=== PATIENT | female | born 1950 | race Caucasian/White ===

== ENCOUNTER 2018-01-09 13:52 | Outpatient (CLI) | payer MEDICARE, OTHER ==
--- NOTE | 2018-01-09 15:38 | RAD ---
CERVICAL SPINE SERIES WITH FLEXION AND EXTENSION FIVE VIEWS: History: Neck pain. FINDINGS: Bones appear slightly demineralized. Vertebral body height is normal. There is marked disc narrowing at C5-6, less marked disc narrowing at C6-7. There are degenerative facet changes present. I do not a ppreciate any definite abnormal motion. There may be a minimal anterolisthesis of C5 on C6. IMPRESSION: Arthritic changes of the spine as discussed above. POS: [facility]
--- NOTE | 2018-01-09 15:45 | RAD ---
FOUR VIEWS LUMBAR SPINE: DATE: 01/09/18. History Bilateral buttock pain with pain extending to each groin and down the left leg. Lumbar radiculopathy . COMPARISON: None available. FINDINGS: There are 5 ufg-eto-pyzqcol lumbar-type vertebral bodies. There is trace retrolisthesis of L3 on L4 with trace grade I anterolisthesis of L4 on L5. No abnormal translational motion is seen between the flexion and extension views of the lumbar spine. Vertebral body heights are within normal limits. There is narrowing of the intervertebral disk space at all levels of the lumbar spine. Multilevel os teophytes are also present. There are facet degenerative changes seen within the lumbar spine. No f racture is seen. There is slight right convex curvature of the lumbar spine. IMPRESSION: 1. Multilevel degenerative changes with trace retrolisthesis of L3 on L4 and trace grade I anterolis thesis of L4 on L5. 2. No fracture is seen. Vertebral body heights are within normal limits. POS: [facility]
--- NOTE | 2018-01-09 16:43 | MRI ---
CERVICAL SPINE MRI WITHOUT CONTRAST 01/09/18 HISTORY: Bilateral shoulder pain, left greater than right. Pain between the shoulder blades. COMPARISON: None. TECHNIQUE: MRI cervical spine is performed without intravenous gadolinium administration. Multisequential, multi planar imaging is performed. FINDINGS: Appropriate T1 marrow signal intensity cervical vertebra. Vertebral body height is maintained. No fra cture. 2 mm of anterolisthesis of C3 upon C4, 2 mm of anterolisthesis of C4 upon C5. Mild edema invol ving the left facet at C5, likely on the basis of mechanical stress/degenerative change. No evidence of ligamentous injury. The visualized brain parenchyma, cervicomedullary junction, cervical cord, and the upper thoracic cor d have a normal size and signal intensity. C2-C3: No significant disc osteophyte complex. No significant central canal stenosis. Moderate to sev ere right foraminal narrowing due to degenerative change of the uncovertebral joint and facet hypertr ophy. Left neural foramina is patent. C3-C4: No significant disc osteophyte complex. No significant central canal stenosis. Neural foramina are patent bilaterally. C4-C5: Disc desiccation without significant loss of disc space height. No significant disc osteophyte complex. No significant central canal stenosis. Neural foramina are patent. There is bilateral facet hypertrophy. C5-C6: Desiccation with mild loss of disc space height. There is a broad based disc osteophyte comple x which abuts the thecal sac. Mild central canal stenosis. Moderate right and mild left foraminal ajit rowing due to degenerative change of the uncovertebral joint. C6-C7: Desiccation with moderate loss of disc space height. No significant central canal stenosis. Ri ght neural foramen is patent. Mild left foraminal narrowing due to degenerative change of the uncover tebral joint. C7-T1: Desiccation without significant loss of disc space height. No significant central canal stenos is. Neural foramina are patent bilaterally. IMPRESSION: Degenerative changes of the cervical spine as detailed above. POS: [facility]
--- NOTE | 2018-01-09 17:40 | MRI ---
MRI OF THE LUMBAR SPINE WITHOUT CONTRAST 01/09/18 HISTORY: Lumbar radiculopathy. Bilateral buttock pain, extending down the groin and down the left leg. COMPARISON: None. TECHNIQUE: MRI of the lumbar spine is performed without intravenous administration. Multisequential, multiplana r imaging is performed. FINDINGS: Appropriate T1 marrow signal intensity of the lumbar vertebrae. Vertebral body height is maintained. No fracture. No significant STIR hyperintensity to suggest edema or ligamentous injury. 1.4 mm of retrolisthesis of L3 upon L4, 2.5 mm anterolisthesis of L4 upon L5. Straightening of the no rmal lumbar lordosis is noted. Symmetric signal intensity of the psoas muscles. The visualized solid organs are unremarkable. T2 hyperintensity in the right renal pelvis may represent a small peripelvic cyst. The conus medullaris terminates at the inferior aspect of T12. T12-L1: Adequate disc hydration. No significant central canal stenosis or foraminal narrowing. L1-L2: No significant posterior disc abnormality. No significant central canal stenosis. Right neural foramen is patent. Minimal left foraminal narrowing. L2-L3: Adequate disc hydration. No significant posterior disc abnormality. No significant central can al stenosis. Foramina are patent. L3-L4: Severe loss of disc space height. No significant posterior disc abnormality. Minimal disc mate rial in the left and right subarticular zone. Mild ligamentum flavum thickening and facet hypertrophy are present. No significant central canal stenosis. The right neural foramen is patent. Moderate lef t foraminal narrowing due to disc material and to a lesser extent facet hypertrophy. There is a T2 hy perintensity involving the disc at the level of the left neural foramen suggesting a small annular fi ssure. The exiting left L3 nerve root is adjacent to this fissure. There is obscuration of the extra foraminal left L3 nerve root. L4-L5: Desiccation with moderate to severe loss of disc space height. Generalized disc bulge, ligamen odette flavum thickening and facet hypertrophy result in moderate central canal stenosis. Moderate bilat eral foraminal narrowing. L5-S1: Desiccation with mild loss of disc space height. There is a central disc protrusion with infer ior disc extrusion. Disc material encroaches upon the left subarticular zone. Minimal mass effect wit hout obscuration of the traversing left S1 nerve root. Right subarticular zone also demonstrates part ial obscuration of the traversing right S1 nerve root due to disc material. There is posterior elemen t hypertrophy. Narrowing of the thecal sac due to epidural lipomatosis. Mild bilateral foraminal narr owing. IMPRESSION: Degenerative changes of the lumbar spine at L3-L4, L4-L5 and L5-S1 as described above. POS: [facility]
== END 2018-01-09 13:53 | disposition home or self-care (01) ==
LOC: TBSIIMAG 13:52
PROVIDERS: ATTEND Surgery
DX: M47.26 Other spondylosis with radiculopathy, lumbar region (principal); M47.22 Other spondylosis with radiculopathy, cervical region; M51.16 Intervertebral disc disorders with radiculopathy, lumbar region; M47.27 Other spondylosis with radiculopathy, lumbosacral region; M99.83 Other biomechanical lesions of lumbar region; M99.81 Other biomechanical lesions of cervical region; M48.02 Spinal stenosis, cervical region
CPT/HCPCS: 72050; 72110; 72141; 72148

== ENCOUNTER 2018-03-18 12:56 | Outpatient (CLI) | payer MEDICARE, OTHER ==
[2018-03-18 14:46] LABS: #Basophils 0.1 thou/uL (0.0-0.2); #Eosinphils 0.1 thou/uL (0.0-0.7); #Lymphocytes 3.7 thou/uL (1.20-3.40); #Monocytes 0.7 thou/uL (0.11-0.59); #Neutrophils 3.9 thou/uL (1.40-6.50); %Basophils 1.4 % (0.0-1.0); %Eosinophils 1.3 % (0.0-10.0); %Lymphocytes 43.3 % (21.0-51.0); %Monocytes 8.3 % (0.0-10.0); %Neutrophils 45.7 % (42.0-75.0); Mean Corpuscular HGB CONC 34.2 g/dL (32.0-36.0); Mean Corpuscular Hemoglobin 29.7 pg (27.0-31.0); Mean Corpuscular Volume 87.1 fL (78.0-98.0); Mean Platelet Volume 7.9 fL (7.4-10.4); Platelet Count 291 thou/uL (130-400); Red Blood Cell (RBC) Count 4.71 mill/uL (4.20-5.40); White Blood Cell (WBC) Count 8.5 thou/uL (4.8-10.8)
[2018-03-18 14:58] LABS: PTT 26.6 SEC (22.9-36.1); Prothrombin Time 12.8 SEC (12.0-14.7)
[2018-03-18 15:04] LABS: Anion Gap 15 mmol/L (10-20); BUN (Urea Nitrogen) 32 mg/dL (9.8-20.1); Calc. Creatinine Clearance 0 mL/min (70-130); Calcium 10.3 mg/dL (7.8-10.44); Carbon Dioxide 28 mmol/L (23-31); Chloride 99 mmol/L (98-107); Estimated GFR-MDRD 55; Glucose 99 mg/dL (80-115); Potassium 5.2 mmol/L (3.5-5.1); Sodium 137 mmol/L (136-145)
--- NOTE | 2018-03-19 12:50 | EKG ---
Test Reason : Blood Pressure : / mmHG Vent. Rate : 078 BPM Atrial Rate : 078 BPM P-R Int : 162 ms QRS Dur : 096 ms QT Int : 426 ms P-R-T Axes : 048 -15 072 degrees QTc Int : 485 ms Normal sinus rhythm RSR' or QR pattern in V1 suggests right ventricular conduction delay Cannot exclude Anterior infarct , age undetermined Abnormal ECG Confirmed by SHANANN HOPSON ([id number]) on 03/19/2018 12:50:06 PM Referred By: MARTHA Confirmed By:SHANNAN HOPSON
== END 2018-03-18 12:57 | disposition home or self-care (01) ==
LOC: LABBT 12:56
PROVIDERS: ATTEND Surgery
DX: Z01.818 Encounter for other preprocedural examination (principal); M48.061 Spinal stenosis, lumbar region without neurogenic claudication; M51.26 Other intervertebral disc displacement, lumbar region
CPT/HCPCS: 80048; 85025; 85610; 85730; 93005; 93010

== ENCOUNTER 2018-03-28 11:12 | Day surgery (SDC) | payer MEDICARE, OTHER ==
[2018-03-18 13:15] VITALS: BMI 37.5
[2018-03-28] MEDS ORDERED: CEFAZOLIN/Water 2 GM/20 ML SYRINGE ONE (12:21)
[2018-03-28] MEDS ORDERED: Bacitracin Zinc Ointment 30 gm TUBE ONE (12:27)
[2018-03-28] MEDS ORDERED: Thrombin 5000 UNITS/5 ML VIAL ONE (12:27)
[2018-03-28] MEDS ORDERED: Sodium Chloride 0.9% 10 ML ONE (12:27)
[2018-03-28] MEDS ORDERED: Fentanyl 250 MCG/5 ML VIAL ONE (13:24)
[2018-03-28] MEDS ORDERED: Midazolam HCl 2 mg/2 ml Vial ONE (13:24)
[2018-03-28] MEDS ORDERED: Morphine Sulfate 2 MG/ML SYRINGE SLOW IVP PRN (15:17)
[2018-03-28] MEDS ORDERED: Promethazine HCl 25 MG/ML VIAL SLOW IVP PRN (15:17)
[2018-03-28] MEDS ORDERED: Meperidine HCl/PF 25 MG/ML VIAL SLOW IVP PRN (15:17)
[2018-03-28] MEDS ORDERED: PHENYLEPHRINE-NS 100 MCG/ML 10 ML SYRINGE ONE (15:34)
[2018-03-28] MEDS ORDERED: Fleet Enema 133 ML BOT PR PRN (16:26)
[2018-03-28] MEDS ORDERED: traMADol HCl 50 MG TAB PO PRN (16:26)
[2018-03-28] MEDS ORDERED: Bisacodyl 10 MG SUPP PR PRN (16:26)
[2018-03-28] MEDS ORDERED: Acetaminophen/Codeine 30-300mg Tablet PO PRN (16:26)
[2018-03-28] MEDS ORDERED: tiZANidine HCl 4 MG TAB PO PRN (16:26)
[2018-03-28] MEDS ORDERED: Acetaminophen 325 MG TAB PO PRN (16:26)
[2018-03-28] MEDS ORDERED: Mag-Al 1200 mg/1200 mg/30 ML UDCUP PO PRN (16:26)
[2018-03-28] MEDS ORDERED: Milk Of Magnesia 30 ML UDCUP PO PRN (16:26)
[2018-03-28] MEDS ORDERED: Promethazine HCl 25 MG/ML VIAL IM PRN (16:26)
[2018-03-28] MEDS ORDERED: Fentanyl 100 MCG/2 ML VIAL ONE ×3 (16:27→17:04)
[2018-03-28] MEDS: HYDROcodone/Acetaminophen 7.5/325 mg Tablet PO PRN (18:06)
[2018-03-28] MEDS: Sodium Chloride 0.9% 1,000 ML IV SCH (19:38)
--- NOTE | 2018-03-28 20:22 | OP ---
OR: 11. WOUND TYPE: Type 1 wound. SURGEON: Joshua Martinez M.D. INSURANCE SALES AGENT: Jamie Condno PA-C. PREPROCEDURE DIAGNOSIS: Multilevel lumbar stenosis with disk extrusion. POSTPROCEDURE DIAGNOSIS: Multilevel lumbar stenosis with disk extrusion. PROCEDURES PERFORMED: 1. Left L3-L4 hemilaminotomy, foraminotomy for decompression of left L3 nerve root. 2. L4-L5, L5-S1 laminectomies, partial facetectomies and foraminotomies with right L5-S1 diskectomy. 3. Use of operative microscope for microdissection. DESCRIPTION OF PROCEDURE: After informed consent was obtained, the patient was brought to OR 11. Pr oper patient pause and identification was carried out. She was placed under excellent general endotr acheal anesthesia and positioned prone on the OR table. All appropriate points were padded. We iden tified the L3, L4, L5, and S1 dorsal spines. A linear clive was made over this region. This area was sterilely cleansed, prepared, and draped. Proper patient pause and identification was carried out. The wound was then opened with a combination of sharp, monopolar and blunt dissection. The L3, L4, L5, and S1 dorsal spines and only the left L3 hemilamina was exposed; however. We then performed a l eft L3-L4 hemilaminotomy, foraminotomy. I did not feel it necessary to do any diskectomy as was an o steophytic disk at this segment and I also did not feel it necessary to do the transfacet approaches and was able to obtain satisfactory decompression with the standard hemilaminotomy approach. Once I assured freedom of the left L3 and left L4 nerve root, L4-L5 and L5-S1 laminectomies, partial facetec tomies and foraminotomies were performed for bilateral decompression of the L4, L5 and S1 nerve roots . I then brought the microscope in for microdissection and worked over the shoulder of the traversin g right S1 nerve root and disk material was removed at L5-S1. Portions of this were also osteophytic ; however, we were able to remove the soft fragments. I was satisfied with our decompression and the wound was copiously irrigated throughout as was maximizing hemostasis. The wound was then closed in anatomic layers following the sprinkling of vancomycin powder. The patient then emerged from anesth esia.
[2018-03-28] MEDS ORDERED: Losartan 25 MG TAB PO SCH (21:00)
[2018-03-28] MEDS ORDERED: Gabapentin 400 MG CAP PO SCH (21:00)
[2018-03-28] MEDS: DULoxetine 30 MG CAP PO SCH (21:27)
[2018-03-28] MEDS: Calcium Polycarbophil 625 MG TAB PO SCH (21:27)
[2018-03-28] MEDS: CEFAZOLIN/Water 2 GM/20 ML SYRINGE SLOW IVP SCH (21:27)
[2018-03-28] MEDS: Sulfameth/Trimethoprim DS 800-160mg TAB PO SCH (21:28)
[2018-03-28] MEDS: Zinc Sulfate 220 MG CAP PO SCH (21:28)
[2018-03-29] MEDS: HYDROcodone/Acetaminophen 7.5/325 mg Tablet PO PRN ×2 (04:03→09:15)
[2018-03-29] MEDS: CEFAZOLIN/Water 2 GM/20 ML SYRINGE SLOW IVP SCH (08:00)
[2018-03-29] MEDS ORDERED: CEFAZOLIN/Water 2 GM/20 ML SYRINGE SLOW IVP SCH (08:00)
[2018-03-29] MEDS ORDERED: Potassium Chloride 20 MEQ TAB PO SCH (09:00)
[2018-03-29] MEDS ORDERED: Prevnar 13-Val Conj/PF 0.5 ML SYRINGE IM ONE (09:00)
[2018-03-29] MEDS ORDERED: Loratadine/Pseudoephedrine 10/240 mg Tablet PO SCH (09:00)
[2018-03-29] MEDS ORDERED: Hydrochlorothiazide 25 MG TAB PO SCH (09:00)
[2018-03-29] MEDS ORDERED: Gabapentin 300 MG CAP PO SCH (09:00)
[2018-03-29] MEDS ORDERED: Magnesium Oxide 400 MG TAB PO SCH (09:00)
[2018-03-29] MEDS: DULoxetine 30 MG CAP PO SCH (09:06)
[2018-03-29] MEDS: Calcium Polycarbophil 625 MG TAB PO SCH (09:06)
[2018-03-29] MEDS: Sulfameth/Trimethoprim DS 800-160mg TAB PO SCH (09:07)
[2018-03-29] MEDS: Zinc Sulfate 220 MG CAP PO SCH (09:07)
[2018-03-29] MEDS: Sodium Chloride 0.9% 1,000 ML IV SCH (09:08)
--- NOTE | 2018-03-29 09:41 | PRG ---
DATE OF SERVICE: 03/29/2018 SUBJECTIVE: Ms. Elmore is postoperative day #1 for multilevel lumbar decompression diskectomy. She is doing well with improvement in her leg pain. She has had some groin pain in the left groin and h ip pain, but she is doing better than before surgery. I am pleased with how she is doing and her str ength is good. We went over interim postoperative issues and she will be dismissed.
[2018-03-29 11:45] VITALS: BP 125/78; TEMP 98.5
== END 2018-03-29 12:30 | disposition home or self-care (01) ==
LOC: SDC 11:12 → SURG A 16:30 → SDC 03-29 12:30
PROVIDERS: ATTEND Surgery
PROC: 0ST20ZZ Resection of Lumbar Vertebral Disc, Open Approach (ICD-10-PCS; principal; 2018-03-28)
PROC: 01NB0ZZ Release Lumbar Nerve, Open Approach (ICD-10-PCS; 2018-03-28)
DX: M48.061 Spinal stenosis, lumbar region without neurogenic claudication (principal); M51.26 Other intervertebral disc displacement, lumbar region; Z88.8 Allergy status to other drugs, medicaments and biological substances
CPT/HCPCS: 76001; 96374; A4216; J2250; J3010; J3370; J3490; J7620

== ENCOUNTER 2018-05-20 09:21 | Outpatient (CLI) | payer MEDICARE, OTHER ==
--- NOTE | 2018-05-20 12:11 | HP ---
DATE OF SERVICE: 05/20/2018 HISTORY OF PRESENT ILLNESS: Ms. Pham Elmore is a very pleasant 67-year-old who presents to the [facility] for evaluation of a nonhealing surgical wound of the back in the midline subsequent to surgery for multilevel lumbar stenosis with disk extension by Dr. Joshua Martinez on 03/28/2018. The patient states that subsequent to surgery, she developed erythema around her surgical incision assoc iated with drainage. She states that her marino were discontinued "1 week early". The patient salazar es any pain associated with her wound. She states that she has been keeping her wound covered with a dressing which she changes every day. The patient states she has not been prescribed any antibiotic s for her wound. She states that she did, however, complete a course of p.o. antibiotics for 3 weeks for a urinary tract infection. PAST MEDICAL HISTORY: Hypertension. PAST SURGICAL HISTORY: 1. Surgery for multilevel lumbar stenosis with disk extension by Dr. Joshua Martinez on 03/28/2018. 2. . 3. Tonsillectomy. 4. Appendectomy. MEDICATIONS: 1. Losartan. 2. Duloxetine. 3. Hydrocodone. 4. Tizanidine. 5. Verapamil. 6. Gabapentin. 7. Diuretic. ALLERGIES: FLUOROQUINOLONES, LATEX. SOCIAL HISTORY: Significant for tobacco use for 2 years as a teenager. The patient admits to only t he rare consumption of alcohol. FAMILY HISTORY: Significant for diabetes mellitus. The patient states that her mother and father we re both diagnosed with diabetes mellitus. Family history is also significant for coronary artery dis ease. The patient states that her grandfather was diagnosed with coronary artery disease. PHYSICAL EXAMINATION: VITAL SIGNS: Temperature 98.3, pulse 101, respirations 19, blood pressure 133/74. GENERAL: A 67-year-old female sitting on table in examination room in no acute distress. HEENT: Normocephalic, atraumatic. NECK: No nuchal rigidity. CHEST: Clear to auscultation. CARDIAC: Regular rate and rhythm. ABDOMEN: Soft. BACK: A midline wound of the back is present which has divided into 2 wounds which measure approxima tely 5.5 x 0.6 cm and 1.2 x 0.5 cm. Nonviable tissue present within the larger wound was debrided wi th an excisional full-thickness debridement with the use of scissors. No purulent drainage is associ ated with either wound. No maceration of the skin of the periwound is noted. NEUROLOGIC: Grossly nonfocal. ASSESSMENT AND PLAN: 1. Nonhealing surgical wound of the back in the midline subsequent to surgery for multilevel lumbar stenosis with disk extension by Dr. Joshua Martinez on 03/28/2018. Dressing changes of Medihoney, 4 x 4 s and bordered gauze will be initiated today. These dressing changes are to be performed on a daily basis or alternatively every other day after cleansing and irrigation with the assistance of the joselito ent's . The patient will be seen by Dr. Martinez in 1 week. I will see Ms. Elmore again in 2 weeks. No antibiotics will be prescribed today based upon the appearance of the wound. 2. Hypertension.
== END 2018-05-20 09:22 | disposition home or self-care (01) ==
LOC: WCC 09:21
PROVIDERS: ATTEND Family Medicine
DX: T81.89XD Other complications of procedures, not elsewhere classified, subsequent encounter (principal); I10 Essential (primary) hypertension; Z98.890 Other specified postprocedural states

== ENCOUNTER 2018-06-03 10:41 | Outpatient (CLI) | payer MEDICARE, OTHER ==
--- NOTE | 2018-06-03 11:58 | PRG ---
DATE OF SERVICE: 06/03/2018 HISTORY: Ms. Pham Elmore is a very pleasant 68-year-old who presents to the Wound Center for eval uation of a nonhealing surgical wound of the back in the midline subsequent to surgery for multilevel lumbar stenosis with disk extension by Dr. Joshua Martinez on 03/28/2018. The patient previously state d that subsequent to surgery, she developed erythema around her surgical incision associated with lewisendy mckeon. She stated that her marino were discontinued "1 week early." At the time of the patient's i nitial presentation to the Wound Center, Ms. Elmore denied any pain associated with her wound. She stated that she had been keeping her wound covered with a dressing, which she changed every day. She stated she had not been prescribed any antibiotics for her wound. She stated that she had, however, completed a course of p.o. antibiotics for 3 weeks for a urinary tract infection. After being seen in the Wound Center, the patient was placed on dressing changes of Medihoney. The patient has been r eceiving these dressing changes with the assistance of her . PHYSICAL EXAMINATION: VITAL SIGNS: Temperature 97.9, pulse 99, respirations 20, blood pressure 164/92. BACK: A midline wound of the back is present, which measures approximately 6.7 x 0.4 cm. Nonviable tissue present within the wound margins was debrided with an excisional full-thickness debridement wi th the use of scissors and a curette. No purulent drainage is associated with the wound. No macerat ion of the skin of the periwound is noted. ASSESSMENT AND PLAN: 1. Nonhealing surgical wound of the back in the midline subsequent to surgery for multilevel lumbar stenosis with disk extension by Dr. Joshua Martinez on 03/28/2018. Dressing changes of Medihoemanuel follow ed by 4 x 4s and an ABD secured with tape will be continued after cleansing and irrigation with the a ssistance of the patient's . I will see Ms. Elmore again in two weeks if her wound is still present at this time. 2. Hypertension.
== END 2018-06-03 10:42 | disposition home or self-care (01) ==
LOC: WCC 10:41
PROVIDERS: ATTEND Family Medicine
DX: T81.89XD Other complications of procedures, not elsewhere classified, subsequent encounter (principal); M48.061 Spinal stenosis, lumbar region without neurogenic claudication; I10 Essential (primary) hypertension
CPT/HCPCS: 11042

== ENCOUNTER 2018-06-19 10:45 | Outpatient (CLI) | payer MEDICARE, OTHER ==
--- NOTE | 2018-06-19 12:13 | PRG ---
DATE OF SERVICE: 06/19/2018 HISTORY: Ms. Pham Elmore is a very pleasant 68-year-old, who presents to the Wound Center for rocío luation of a nonhealing surgical wound of the back in the midline subsequent to surgery for multileve l lumbar stenosis with disk extrusion by Dr. Joshua Martinez on 03/28/2018. The patient previously stat ed that, subsequent to surgery, she developed erythema around her surgical incision associated with d rainage. She stated that her marino were discontinued "1 week early." At the time of the patient's initial presentation to the Wound Center, Ms. Elmore denied any pain associated with her wound. Sh e stated that she had been keeping her wound covered with a dressing, which she changed every day. S he stated she had not been prescribed any p.o. antibiotics. She stated that she had, however, comple ai a course of p.o. antibiotics for 3 weeks for a urinary tract infection. After being seen in the Wound Center, the patient was placed on dressing changes of Ela. The patient has been receivin g these dressing changes with the assistance of her . PHYSICAL EXAMINATION: VITAL SIGNS: Temperature 97.6, pulse 89, respirations 19, blood pressure 143/73. BACK: Two wounds of the back in the midline remain, which measure approximately 2.0 x 0.3 cm and 0.9 x 0.3 cm. Nonviable tissue present within the margins of each wound was debrided with an excisional full-thickness debridement with the use of scissors and a curette. No purulent drainage is associat ed with either wound. No cellulitis of the back is appreciated. No maceration of the skin of the ba ck is noted. ASSESSMENT AND PLAN: 1. Nonhealing surgical wound of the back in the midline subsequent to surgery for multilevel lumbar stenosis with disk extrusion by Dr. Joshua Martinez on 03/28/2018. Dressing changes of Ela follow ed by 4 x 4s secured with tape are to be performed on a daily basis after cleansing and irrigation wi th the assistance of the patient's until both wounds have completely healed. The wounds have almost healed completely and Ms. Elmore will be discharged from clinic today with followup on a p.r .n. basis. The patient states she has a followup appointment with Neurosurgery in approximately 2 we eks. 2. Hypertension.
[2018-06-19] MEDS ORDERED: Lidocaine 2% Jelly 5 ML TUBE ONE (15:00)
[2018-06-19] MEDS ORDERED: Sodium Chloride 0.9% 15 ML NEB ONE (15:00)
== END 2018-06-19 10:46 | disposition home or self-care (01) ==
LOC: WCC 10:45
PROVIDERS: ATTEND Family Medicine
DX: T81.89XD Other complications of procedures, not elsewhere classified, subsequent encounter (principal); I10 Essential (primary) hypertension
CPT/HCPCS: 11042; A4218

== ENCOUNTER 2018-08-08 12:34 | Outpatient (CLI) | payer MEDICARE, OTHER ==
[2018-08-08 14:34] LABS: #Basophils 0.2 thou/uL (0.0-0.2); #Eosinphils 0.3 thou/uL (0.0-0.7); #Lymphocytes 4.1 thou/uL (1.20-3.40); #Monocytes 0.9 thou/uL (0.11-0.59); #Neutrophils 4.8 thou/uL (1.40-6.50); %Basophils 1.6 % (0.0-1.0); %Eosinophils 2.5 % (0.0-10.0); %Lymphocytes 40.2 % (21.0-51.0); %Monocytes 8.7 % (0.0-10.0); Hemoglobin 13.2 g/dL (12.0-16.0); Mean Corpuscular HGB CONC 34.1 g/dL (32.0-36.0); Mean Corpuscular Volume 85.2 fL (78.0-98.0); Mean Platelet Volume 8.8 fL (7.4-10.4); Platelet Count 292 thou/uL (130-400); RBC Distribution Width 13.5 % (11.5-14.5); Red Blood Cell (RBC) Count 4.54 mill/uL (4.20-5.40); White Blood Cell (WBC) Count 10.2 thou/uL (4.8-10.8)
[2018-08-08 14:44] LABS: Bilirubin Negative (Negative); Blood, Urine Negative (Negative); Clarity CLEAR (Clear); Glucose, Urine (Dipstick) Negative (Negative); Leukocyte Small (Negative); Nitrite Negative (Negative); Protein, Urine (Dipstick) Negative (Neg-Trace); Specific Gravity, Urine 1.028 (1.002-1.036); Urobilinogen 0.2 mg/dL (0.2-1.0); pH, Urine 5.5 (5.0-9.0)
[2018-08-08 14:46] LABS: PTT 27.1 SEC (22.9-36.1); Prothrombin Time 13.2 SEC (12.0-14.7)
[2018-08-08 14:48] LABS: Bacteria/HPF None Seen HPF (None Seen); Hyaline Casts/LPF 0-3 HYALINE CAST LPF (0-3 Hyaline); Pathc Cast-AUWi Flag 0.29 (0-2.49); RBC/HPF 0-3 HPF (0-3); Squamous Epithelial 0-3 HPF (0-3)
[2018-08-08 14:58] LABS: Anion Gap 16 mmol/L (10-20); BUN (Urea Nitrogen) 22 mg/dL (9.8-20.1); Calc. Creatinine Clearance 0 mL/min (70-130); Calcium 10.1 mg/dL (7.8-10.44); Carbon Dioxide 28 mmol/L (23-31); Chloride 98 mmol/L (98-107); Estimated GFR-MDRD 81; Glucose 129 mg/dL (80-115); Potassium 3.6 mmol/L (3.5-5.1); Sodium 138 mmol/L (136-145)
--- NOTE | 2018-08-08 15:19 | RAD ---
TWO VIEW CHEST: INDICATION: Preoperative evaluation. FINDINGS: The lungs are clear. Cardiac silhouette is at upper limits of normal in size. There is no effusion or pneumothorax. Osseous degenerative changes are present. IMPRESSION: 1. No focal consolidation. 2. Cardiac silhouette is at upper limits of normal in size. POS: [facility]
--- NOTE | 2018-08-09 22:34 | EKG ---
Test Reason : Blood Pressure : / mmHG Vent. Rate : 083 BPM Atrial Rate : 083 BPM P-R Int : 166 ms QRS Dur : 100 ms QT Int : 424 ms P-R-T Axes : 047 -09 039 degrees QTc Int : 498 ms Normal sinus rhythm Incomplete right bundle branch block Minimal voltage criteria for LVH, may be normal variant Prolonged QT Abnormal ECG When compared with ECG of 18-MAR-2018 14:15, No significant change was found Confirmed by GWEN CHAMBERLAIN, . SKarl ([id number]) on 08/09/2018 10:33:43 PM Referred By: ROSARIO Confirmed By:DR. Akash HIDALGO MD
== END 2018-08-08 12:35 | disposition home or self-care (01) ==
LOC: LABBT 12:34
PROVIDERS: ATTEND Orthopaedic Surgery
DX: Z01.818 Encounter for other preprocedural examination (principal); M16.12 Unilateral primary osteoarthritis, left hip
CPT/HCPCS: 71046; 80048; 81001; 85025; 85610; 85730; 87081; 93005; 93010

== ENCOUNTER 2018-08-08 13:30 | Inpatient (IN) | payer MEDICARE, OTHER ==
[2018-08-13] MEDS ORDERED: Midazolam HCl 2 mg/2 ml Vial ONE (07:45)
[2018-08-13] MEDS ORDERED: Fentanyl 100 MCG/2 ML VIAL ONE ×2 (07:45→09:24)
[2018-08-13] MEDS ORDERED: Vancomycin HCl 1.5 GM in Sodium Chloride 0.9% 250 ML 300 ML IVPB SCH (08:00)
[2018-08-13] MEDS ORDERED: Sodium Chloride 0.9% 100 ML ONE (08:04)
[2018-08-13] MEDS ORDERED: CEFAZOLIN 2 GM/50 ML BAG ONE (08:04)
[2018-08-13] MEDS ORDERED: Tranexamic Acid 1,000 MG/10 ML VIAL ONE ×2 (08:04→11:27)
[2018-08-13] MEDS ORDERED: Ondansetron PF 4 MG/2 ML Vial IVP PRN ×2 (08:45→09:05)
[2018-08-13] MEDS ORDERED: Naloxone HCl 0.4 mg/ml Vial IVP PRN (08:45)
[2018-08-13] MEDS ORDERED: diphenhydrAMINE 25 MG CAP PO PRN ×2 (08:45→09:05)
[2018-08-13] MEDS ORDERED: traMADol HCl 50 MG TAB PO PRN ×3 (08:45→09:05)
[2018-08-13] MEDS ORDERED: Naloxone HCl 0.4 mg/ml Vial IV PRN (08:45)
[2018-08-13] MEDS ORDERED: Hydrocerin (Eucerin) Cream 120 gm Jar TOP PRN (08:45)
[2018-08-13] MEDS ORDERED: diphenhydrAMINE 50 MG/ML VIAL IM PRN (08:45)
[2018-08-13] MEDS ORDERED: HYDROcodone/Acetaminophen 5/325 mg Tablet PO PRN (08:45)
[2018-08-13] MEDS ORDERED: Promethazine HCl 25 MG SUPP PR PRN (08:45)
[2018-08-13] MEDS ORDERED: Promethazine HCl 25 MG/ML VIAL IM PRN ×2 (08:45→09:05)
[2018-08-13] MEDS ORDERED: Bupivacaine 0.25% 10 ML VIAL EPIDURAL PRN (08:45)
[2018-08-13] MEDS ORDERED: diphenhydrAMINE 50 MG/ML VIAL IVP PRN (08:45)
[2018-08-13] MEDS ORDERED: Zolpidem Tartrate 5 MG TAB PO PRN ×2 (08:45→09:05)
[2018-08-13] MEDS ORDERED: HYDROcodone/Acetaminophen 10/325 mg Tablet PO PRN ×2 (09:05)
[2018-08-13] MEDS ORDERED: Acetaminophen 325 MG TAB PO PRN (09:05)
[2018-08-13] MEDS ORDERED: Fentanyl 100 MCG/2 ML VIAL SLOW IVP PRN ×2 (09:05)
[2018-08-13] MEDS ORDERED: Non-Formulary Item 1 EACH (Gabapentin [Gabapentin] 1 TAB) PO SCH (09:15)
[2018-08-13] MEDS ORDERED: Bupivacaine/Epinephrine 0.25% 30 ML VIAL ONE (09:33)
[2018-08-13] MEDS ORDERED: Acetaminophen 1,000 MG in Premix Bag 1 BAG IVPB SCH (12:00)
--- NOTE | 2018-08-13 12:21 | RAD ---
LEFTL HIP TWO VIEWS: History: Status post arthroplasty. Comparison: 06-12-17 FINDINGS: There are expected postoperative changes. Alignment is near anatomic. IMPRESSION: Expected post-operative change compatible with left hip arthroplasty. POS: [facility]
[2018-08-13] MEDS ORDERED: Acetaminophen 500 MG TAB PO PRN (12:23)
[2018-08-13 13:01] VITALS: BMI 40.6
[2018-08-13] MEDS ORDERED: Prevnar 13-Val Conj/PF 0.5 ML SYRINGE IM ONE (13:30)
[2018-08-13] MEDS: Sodium Chloride 0.9% 1,000 ML IV SCH ×3 (14:13→18:54)
[2018-08-13] MEDS: Gabapentin 300 MG CAP PO SCH ×2 (14:27→21:47)
[2018-08-13] MEDS: CEFAZOLIN 2 GM/50 ML BAG IVPB SCH (14:28)
--- NOTE | 2018-08-13 14:49 | PDOC.PN ---
- Subjective Encounter Start Date: 08/13/18 Encounter Start Time: 14:00 -: old records requested/rev Patient seen and examined. No new complaints. pt is admitted for left hip replacement consulted for medical management pain controlled - Objective Resuscitation Status - Order Detail: 08/13/18 13:45 Resuscitation Status Routine Resuscitation Status: FULL: Full Resuscitation MAR Reviewed: Yes Vital Signs & Weight: Vital Signs (12 hours) Temp Pulse Resp BP Pulse Ox 08/13/18 12:45 97.6 F 70 16 107/67 94 L Weight Weight 252 lb Additional Labs: old record reviewed Radiology Reviewed by me: Yes (hip xray reviwed) Phys Exam - Physical Examination Constitutional: NAD HEENT: PERRLA, moist MMs, sclera anicteric Neck: no JVD, supple Respiratory: no wheezing, no rales, no rhonchi Cardiovascular: RRR, no significant murmur, no rub Gastrointestinal: soft, non-tender, no distention, positive bowel sounds Musculoskeletal: no edema, pulses present left hip site with dressing, epidural in place, trotter Neurological: non-focal, normal sensation, moves all 4 limbs Lymphatic: no nodes Psychiatric: normal affect, A&O x 3 Skin: no rash, normal turgor Dx/Plan (1) Status post total hip replacement, left Code(s): Z96.642 - PRESENCE OF LEFT ARTIFICIAL HIP JOINT Status: Acute (2) Dyslipidemia Code(s): E78.5 - HYPERLIPIDEMIA, UNSPECIFIED Status: Chronic (3) Hypertension Code(s): I10 - ESSENTIAL (PRIMARY) HYPERTENSION Status: Chronic (4) Lumbar canal stenosis Code(s): M48.061 - SPINAL STENOSIS, LUMBAR REGION WITHOUT NEUROGENIC SADE Status: Chronic (5) Morbid obesity with BMI of 40.0-44.9, adult Code(s): E66.01 - MORBID (SEVERE) OBESITY DUE TO EXCESS CALORIES; Z68.41 - BODY MASS INDEX (BMI) 40.0-44.9, ADULT Status: Chronic (6) Osteoarthritis Code(s): M19.90 - UNSPECIFIED OSTEOARTHRITIS, UNSPECIFIED SITE Status: Chronic - Plan cont current plan of care, plan discussed w/ family, PT/OT * continue aspirin for DVT prophylaxis * continue pepcid for GI prophylaxis * epidural as per anesthesia * code status addressed and she is full code * medication reviewed as below * symptomatic treatment * discussed with family * PT/OT as per [facility] protocol * home medication reconciled.. Review of Systems - Review of Systems ENT: negative: Ear Pain, Ear Discharge, Nose Pain, Nose Discharge, Nose Congestion, Mouth Pain, Mouth Swelling, Throat Pain, Throat Swelling, Other Respiratory: negative: Cough, Dry, Shortness of Breath, Hemoptysis, SOB with Excertion, Pleuritic Pain, Sputum, Wheezing Cardiovascular: negative: chest pain, palpitations, orthopnea, paroxysmal nocturnal dyspnea, edema, light headedness, other Gastrointestinal: negative: Nausea, Vomiting, Abdominal Pain, Diarrhea, Constipation, Melena, Hematochezia, Other Genitourinary: negative: Dysuria, Frequency, Incontinence, Hematuria, Retention , Other Musculoskeletal: negative: Neck Pain, Shoulder Pain, Arm Pain, Back Pain, Hand Pain, Leg Pain, Foot Pain, Other Skin: negative: Rash, Lesions, Del, Bruising, Other - Medications/Allergies Allergies/Adverse Reactions: Allergies Allergy/AdvReac Type Severity Reaction Status Date / Time ofloxacin [From Floxin] Allergy hallucinati Verified 08/08/18 12:46 ons Medications: Current Medications Acetaminophen (Tylenol) 1,000 mg PO Q6H PRN PRN Reason: Fever/Mild Pain Hydrocodone Bitart/Acetaminophen ([place] 5/325) 1 tab PO Q4H PRN PRN Reason: Mild Pain 0-3 Hydrocodone Bitart/Acetaminophen ([place] 5/325) 2 tab PO Q4H PRN PRN Reason: For Moderate Pain 4-6 Hydrocodone Bitart/Acetaminophen ([place] 10/325) 1 tab PO Q4H PRN PRN Reason: Moderate Pain (4-6) Hydrocodone Bitart/Acetaminophen ([place] 10/325) 2 tab PO Q4H PRN PRN Reason: Severe Pain (7-10) Aspirin (Ecotrin) 81 mg PO BID ROD Bupivacaine HCl (Marcaine) 5 ml EPIDURAL ONE PRN PRN Reason: UNCONTROLLED PAIN Stop: 08/13/18 23:00 Cefazolin Sodium/Dextrose (Ancef 2 Gm/50 Ml) 2 gm IVPB Q8H ROD Stop: 08/14/18 00:01 Last Admin: 08/13/18 14:28 Dose: 2 gm Diphenhydramine HCl (Benadryl) 25 mg IM Q3H PRN PRN Reason: Itching Diphenhydramine HCl (Benadryl) 25 mg IVP Q3H PRN PRN Reason: Itching Diphenhydramine HCl (Benadryl) 25 mg PO Q6H PRN PRN Reason: Itching Duloxetine HCl (Cymbalta) 30 mg PO BID [facility] Emollient Cream (Hydrocerin Cream) 0 gm TOP PRN PRN PRN Reason: Itching Fentanyl (Sublimaze) 50 mcg SLOW IVP Q30MIN PRN PRN Reason: Moderate Pain (4-6) Fentanyl (Sublimaze) 100 mcg SLOW IVP Q1H PRN PRN Reason: Severe Pain (7-10) Ferrous Gluconate (Fergon) 324 mg PO BID [facility] Gabapentin (Neurontin) 600 mg PO 0900,1500 [facility] Last Admin: 08/13/18 14:27 Dose: 600 mg Gabapentin (Neurontin) 1,200 mg PO HS [facility] Hydrochlorothiazide (Hydrochlorothiazide) 12.5 mg PO DAILY [facility] Fentanyl Citrate (Fentanyl/Bupivacaine) 100 mls @ 6 mls/hr EPIDURAL INF [facility] Sodium Chloride (Normal Saline 0.9%) 1,000 mls @ 100 mls/hr IV .Q10H [facility] Last Admin: 08/13/18 14:27 Dose: 1,000 mls Iron/Minerals/Multivitamins (Theragran M) 1 tab PO DAILY [facility] Losartan Potassium (Cozaar) 50 mg PO HS [facility] Miscellaneous Information (Communication Order-Pharmacy) 1 each FS ASDIR ROD Naloxone HCl (Narcan) 0.2 mg IV Q5MIN PRN PRN Reason: RR <=8 OR OBTUNDED/UNAROUSABLE Naloxone HCl (Narcan) 0.1 mg IVP Q15MIN PRN PRN Reason: URINARY RETENTION Ondansetron HCl (Zofran) 4 mg IVP Q6H PRN PRN Reason: Nausea/Vomiting Promethazine HCl (Phenergan Suppository) [address] Q4H PRN PRN Reason: Nausea/Vomiting Promethazine HCl (Phenergan) 12.5 mg IM Q4H PRN PRN Reason: Nausea/Vomiting Senna/Docusate Sodium (Senokot S) 2 tab PO BID [facility] Sodium Chloride (Flush - Normal Saline) 10 ml IVF PRN PRN PRN Reason: Saline Flush Tizanidine HCl (Zanaflex) 4 mg PO Q8H PRN PRN Reason: MUS PAIN Tramadol HCl (Ultram) 50 mg PO Q6H PRN PRN Reason: Mild Pain 1-3 Tramadol HCl (Ultram) 100 mg PO Q6H PRN PRN Reason: Moderate Pain 4-6 Verapamil HCl (Calan Sr) 240 mg PO QAM ROD Zolpidem Tartrate (Ambien) 5 mg PO HSPRN PRN PRN Reason: Insomnia
[2018-08-13] MEDS ORDERED: Ondansetron PF 4 MG/2 ML Vial ONE (16:07)
[2018-08-13] MEDS ORDERED: Dexamethasone 20 MG/5 ML VIAL ONE (16:07)
[2018-08-13] MEDS ORDERED: Glycopyrrolate 0.2 MG/ML 5 ML SYRINGE ONE (16:07)
[2018-08-13] MEDS ORDERED: PROPOFOL 200 MG/20 ML VIAL ONE (16:07)
[2018-08-13] MEDS ORDERED: PHENYLEPHRINE-NS 100 MCG/ML 10 ML SYRINGE ONE (16:07)
[2018-08-13] MEDS ORDERED: Lidocaine 1% PF 5 ML VIAL ONE (16:07)
--- NOTE | 2018-08-13 19:05 | OP ---
DATE OF PROCEDURE: 08/13/2018 PROCEDURE PERFORMED: Left total hip arthroplasty using a Blair Accolade size II stem with a -2.5 x 36 ceramic head, PSL 50 mm cup with a 36 mm X3 Liner. PROFESSOR OF PUBLIC ADMINISTRATION: Yehuda Demarco PA-C. BLOOD LOSS: 200. SPECIMENS: None. DRAINS: None. COMPLICATIONS: None. PROCEDURE IN DETAIL: After informed consent was obtained in the preoperative holding area, the patient was taken to the operative suite where general anesthesia was induced. The patient was then positioned in the lateral decubitus position. The hip was then prepped and draped in usual sterile fashion. The patient received preoperative antibiotics. Prior to incision, time-out was called and all members of the surgical team agreed upon site, surgeon, and patient. After this, a longitudinal incision was made directly over the trochanter, noted by palpation extending 2 fingerbreadths above and below the trochanter. The deeper subcutaneous layer was undermined with Bovie electrocautery. The iliotibial band was encountered and incised sharply and the plane below this was developed bluntly. A Charnley retractor was placed to hold this opened. The lateral aspect of the trochanter and the abductor muscles were encountered and then reflected anteriorly off the trochanter using Bovie electrocautery. Once this was completed, the anterior capsule was then encountered and identified and copious capsulotomy was carried out, exposing the femoral neck and head. Dislocation maneuver was then performed and an in situ provisional neck cut was then made using the oscillating saw. Attention was then turned to acetabular preparation and sequential reaming was carried out up to the appropriate diameter. A trial was then malleted into place with good firm resistance and no pullout. The permanent acetabular shell was then malleted squarely into place, as was the appropriate liner. Once completed, the wound was copiously irrigated and attention was then turned to femoral preparation. Flexion and external rotation were performed of the exposed thigh and femoral elevators were then placed at the proximal aspect of the wound. Canal finder was used to establish the length of the canal and sequential reaming was carried out, followed by broaching. Once the appropriate stability was established with the trial broaches with flexion, extension and rotational stability, we did trial with neutral and 2 mm offset incremental necks. Once the appropriate size was decided upon, with good stability noted with flexion, extension, internal and external rotation and shuck being negative, we removed the femoral trial broach and malleted into place the permanent prosthesis with good firm fit, which was also stable to rotation. Again, the hip felt very stable to flexion, extension, internal and external rotation. Leg lengths appeared near anatomic clinically and we were quite happy with prosthesis placement. Copious irrigation was then carried out through the entirety of the wound. Primary closure of the abductors was accomplished with interrupted #2 Vicryl [id number] stitches and the IT band was then closed with interrupted #2 Vicryl, oversewn with a #2 running barbed Quill stitch. Subcutaneous fascia was closed with running barbed Quill stitch and a subcuticular Monocryl barbed Quill stitch was used for skin closure and augmented with skin cement. A sterile dressing was applied. The procedure was terminated without any complication. All counts were correct. The patient was awakened in the operative suite and taken to the recovery room in stable condition. Job ID: [id number]
[2018-08-13] MEDS ORDERED: tiZANidine HCl 4 MG TAB PO PRN (21:00)
[2018-08-13] MEDS: DULoxetine 30 MG CAP PO SCH (21:45)
[2018-08-13] MEDS: Senokot S 8.6-50 MG TAB PO SCH (21:46)
[2018-08-13] MEDS: Famotidine 20 MG TAB PO SCH (21:46)
[2018-08-13] MEDS: Ferrous Gluconate 324 MG TAB PO SCH (21:46)
[2018-08-13] MEDS: Aspirin 81 mg Enteric Coated Tablet PO SCH (21:51)
[2018-08-14] MEDS: CEFAZOLIN 2 GM/50 ML BAG IVPB SCH (00:53)
[2018-08-14] MEDS: Fentanyl/Bupivacaine 100 ML EPIDURAL SCH ×2 (01:50→16:53)
[2018-08-14] MEDS: Sodium Chloride 0.9% 1,000 ML IV SCH ×2 (04:43→11:05)
[2018-08-14] MEDS: HYDROcodone/Acetaminophen 5/325 mg Tablet PO PRN ×2 (04:45→09:58)
[2018-08-14 06:57] LABS: Hemoglobin 11.4 g/dL (12.0-16.0); Mean Corpuscular HGB CONC 32.5 g/dL (32.0-36.0); Mean Corpuscular Hemoglobin 28.3 pg (27.0-31.0); Mean Corpuscular Volume 86.9 fL (78.0-98.0); Mean Platelet Volume 8.4 fL (7.4-10.4); Platelet Count 255 thou/uL (130-400); RBC Distribution Width 13.5 % (11.5-14.5); Red Blood Cell (RBC) Count 4.04 mill/uL (4.20-5.40); White Blood Cell (WBC) Count 12.2 thou/uL (4.8-10.8)
[2018-08-14] MEDS ORDERED: Non-Formulary Item 1 EACH (Hydrochlorothiazide [Hydrochlorothiazide] 1 TAB) PO SCH (09:00)
[2018-08-14] MEDS: DULoxetine 30 MG CAP PO SCH ×2 (09:59→21:56)
[2018-08-14] MEDS: Multivitamin W/ Minerals 1 TAB PO SCH (09:59)
[2018-08-14] MEDS: Ferrous Gluconate 324 MG TAB PO SCH ×2 (09:59→21:57)
[2018-08-14] MEDS: Famotidine 20 MG TAB PO SCH ×2 (09:59→21:57)
[2018-08-14] MEDS: Senokot S 8.6-50 MG TAB PO SCH ×2 (09:59→21:56)
[2018-08-14] MEDS: Hydrochlorothiazide 25 MG TAB PO SCH (10:00)
[2018-08-14] MEDS: Aspirin 81 mg Enteric Coated Tablet PO SCH ×2 (10:00→21:56)
--- NOTE | 2018-08-14 10:06 | PDOC.PN ---
- Subjective Encounter Start Date: 08/14/18 Encounter Start Time: 09:40 Patient seen and examined. No new complaints. No overnight events - Objective Resuscitation Status - Order Detail: 08/13/18 13:45 Resuscitation Status Routine Resuscitation Status: FULL: Full Resuscitation MAR Reviewed: Yes Vital Signs & Weight: Vital Signs (12 hours) Temp Pulse Resp BP Pulse Ox 08/14/18 07:41 98.3 F 103 H 18 147/86 H 91 L 08/14/18 07:30 95 08/14/18 04:00 98.1 F 99 18 152/80 H 96 08/14/18 00:00 98.5 F 99 18 153/84 H 94 L Weight Weight 252 lb I&O: 08/13/18 08/14/18 08/15/18 06:59 06:59 06:59 Intake Total 1390 3192 Output Total 300 3800 Balance 1090 -608 Result Diagrams: 08/14/18 06:34 Phys Exam - Physical Examination Constitutional: NAD HEENT: PERRLA, moist MMs, sclera anicteric Neck: no JVD, supple Respiratory: no wheezing, no rales, no rhonchi, clear to auscultation bilateral Cardiovascular: RRR, no significant murmur, no rub Gastrointestinal: soft, non-tender, no distention, positive bowel sounds Musculoskeletal: no edema, pulses present right hip with dressing Neurological: non-focal, normal sensation, moves all 4 limbs Lymphatic: no nodes Psychiatric: normal affect, A&O x 3 Skin: no rash, normal turgor Dx/Plan (1) Status post total hip replacement, left Code(s): Z96.642 - PRESENCE OF LEFT ARTIFICIAL HIP JOINT Status: Acute (2) Dyslipidemia Code(s): E78.5 - HYPERLIPIDEMIA, UNSPECIFIED Status: Chronic (3) Hypertension Code(s): I10 - ESSENTIAL (PRIMARY) HYPERTENSION Status: Chronic (4) Lumbar canal stenosis Code(s): M48.061 - SPINAL STENOSIS, LUMBAR REGION WITHOUT NEUROGENIC SADE Status: Chronic (5) Morbid obesity with BMI of 40.0-44.9, adult Code(s): E66.01 - MORBID (SEVERE) OBESITY DUE TO EXCESS CALORIES; Z68.41 - BODY MASS INDEX (BMI) 40.0-44.9, ADULT Status: Chronic (6) Osteoarthritis Code(s): M19.90 - UNSPECIFIED OSTEOARTHRITIS, UNSPECIFIED SITE Status: Chronic (7) Anemia, normocytic normochromic Code(s): D64.9 - ANEMIA, UNSPECIFIED Status: Chronic - Plan cont current plan of care, plan discussed w/ family, PT/OT * continue aspirin for DVT prophylaxis * continue pepcid for GI prophylaxis * epidural as per anesthesia * continue trotter care * medication reviewed as below * symptomatic treatment * discussed with family * PT/OT as per [facility] protocol Review of Systems - Review of Systems ENT: negative: Ear Pain, Ear Discharge, Nose Pain, Nose Discharge, Nose Congestion, Mouth Pain, Mouth Swelling, Throat Pain, Throat Swelling, Other Respiratory: negative: Cough, Dry, Shortness of Breath, Hemoptysis, SOB with Excertion, Pleuritic Pain, Sputum, Wheezing Cardiovascular: negative: chest pain, palpitations, orthopnea, paroxysmal nocturnal dyspnea, edema, light headedness, other Gastrointestinal: negative: Nausea, Vomiting, Abdominal Pain, Diarrhea, Constipation, Melena, Hematochezia, Other Genitourinary: negative: Dysuria, Frequency, Incontinence, Hematuria, Retention , Other Musculoskeletal: negative: Neck Pain, Shoulder Pain, Arm Pain, Back Pain, Hand Pain, Leg Pain, Foot Pain, Other Skin: negative: Rash, Lesions, Del, Bruising, Other - Medications/Allergies Allergies/Adverse Reactions: Allergies Allergy/AdvReac Type Severity Reaction Status Date / Time ofloxacin [From Floxin] Allergy hallucinati Verified 08/08/18 12:46 ons Medications: Current Medications Acetaminophen (Tylenol) 1,000 mg PO Q6H PRN PRN Reason: Fever/Mild Pain Hydrocodone Bitart/Acetaminophen ([place] 5/325) 1 tab PO Q4H PRN PRN Reason: Mild Pain 0-3 Hydrocodone Bitart/Acetaminophen ([place] 5/325) 2 tab PO Q4H PRN PRN Reason: For Moderate Pain 4-6 Last Admin: 08/14/18 09:58 Dose: 2 tab Aspirin (Ecotrin) 81 mg PO BID ROD Last Admin: 08/14/18 10:00 Dose: 81 mg Diphenhydramine HCl (Benadryl) 25 mg IM Q3H PRN PRN Reason: Itching Diphenhydramine HCl (Benadryl) 25 mg IVP Q3H PRN PRN Reason: Itching Diphenhydramine HCl (Benadryl) 25 mg PO Q6H PRN PRN Reason: Itching Duloxetine HCl (Cymbalta) 30 mg PO BID [facility] Last Admin: 08/14/18 09:59 Dose: 30 mg Emollient Cream (Hydrocerin Cream) 0 gm TOP PRN PRN PRN Reason: Itching Famotidine (Pepcid) 20 mg PO BID [facility] Last Admin: 08/14/18 09:59 Dose: 20 mg Ferrous Gluconate (Fergon) 324 mg PO BID [facility] Last Admin: 08/14/18 09:59 Dose: 324 mg Gabapentin (Neurontin) 600 mg PO 0900,1500 [facility] Last Admin: 08/13/18 14:27 Dose: 600 mg Gabapentin (Neurontin) 1,200 mg PO HS [facility] Last Admin: 08/13/18 21:47 Dose: 1,200 mg Hydrochlorothiazide (Hydrochlorothiazide) 12.5 mg PO DAILY [facility] Last Admin: 08/14/18 10:00 Dose: 12.5 mg Fentanyl Citrate (Fentanyl/Bupivacaine) 100 mls @ 6 mls/hr EPIDURAL INF [facility] Last Admin: 08/14/18 01:50 Dose: 100 mls Sodium Chloride (Normal Saline 0.9%) 1,000 mls @ 100 mls/hr IV .Q10H [facility] Last Admin: 08/14/18 04:43 Dose: Not Given Iron/Minerals/Multivitamins (Theragran M) 1 tab PO DAILY [facility] Last Admin: 08/14/18 09:59 Dose: 1 tab Losartan Potassium (Cozaar) 50 mg PO [facility] Miscellaneous Information (Communication Order-Pharmacy) 1 each FS ASDIR [facility] Naloxone HCl (Narcan) 0.2 mg IV Q5MIN PRN PRN Reason: RR <=8 OR OBTUNDED/UNAROUSABLE Naloxone HCl (Narcan) 0.1 mg IVP Q15MIN PRN PRN Reason: URINARY RETENTION Ondansetron HCl (Zofran) 4 mg IVP Q6H PRN PRN Reason: Nausea/Vomiting Promethazine HCl (Phenergan Suppository) 25 mg [place] Q4H PRN PRN Reason: Nausea/Vomiting Promethazine HCl (Phenergan) 12.5 mg IM Q4H PRN PRN Reason: Nausea/Vomiting Senna/Docusate Sodium (Senokot S) 2 tab PO BID [facility] Last Admin: 08/14/18 09:59 Dose: 2 tab Sodium Chloride (Flush - Normal Saline) 10 ml IVF PRN PRN PRN Reason: Saline Flush Tizanidine HCl (Zanaflex) 4 mg PO Q8H PRN PRN Reason: MUS PAIN Tramadol HCl (Ultram) 50 mg PO Q6H PRN PRN Reason: Mild Pain 1-3 Tramadol HCl (Ultram) 100 mg PO Q6H PRN PRN Reason: Moderate Pain 4-6 Verapamil HCl (Calan Sr) 240 mg PO QAM [facility] Last Admin: 08/14/18 10:01 Dose: 240 mg Zolpidem Tartrate (Ambien) 5 mg PO HSPRN PRN PRN Reason: Insomnia
[2018-08-14] MEDS: Gabapentin 300 MG CAP PO SCH ×3 (11:20→21:56)
[2018-08-14] MEDS ORDERED: Losartan 25 MG TAB PO SCH (21:00)
[2018-08-15] MEDS: Sodium Chloride 0.9% 1,000 ML IV SCH ×2 (00:18→08:24)
[2018-08-15] MEDS: Fentanyl/Bupivacaine 100 ML EPIDURAL SCH (05:43)
[2018-08-15 06:16] LABS: Hemoglobin 11.6 g/dL (12.0-16.0); Mean Corpuscular HGB CONC 32.7 g/dL (32.0-36.0); Mean Corpuscular Hemoglobin 28.9 pg (27.0-31.0); Mean Corpuscular Volume 88.2 fL (78.0-98.0); Mean Platelet Volume 8.8 fL (7.4-10.4); Platelet Count 256 thou/uL (130-400); RBC Distribution Width 13.6 % (11.5-14.5); White Blood Cell (WBC) Count 12.8 thou/uL (4.8-10.8)
[2018-08-15] MEDS: DULoxetine 30 MG CAP PO SCH (08:21)
[2018-08-15] MEDS: Aspirin 81 mg Enteric Coated Tablet PO SCH (08:21)
[2018-08-15] MEDS: Hydrochlorothiazide 25 MG TAB PO SCH (08:22)
[2018-08-15] MEDS: Senokot S 8.6-50 MG TAB PO SCH (08:23)
[2018-08-15] MEDS: Multivitamin W/ Minerals 1 TAB PO SCH (08:23)
[2018-08-15] MEDS: Ferrous Gluconate 324 MG TAB PO SCH (08:23)
[2018-08-15] MEDS: Gabapentin 300 MG CAP PO SCH ×2 (08:23→16:16)
[2018-08-15] MEDS: Famotidine 20 MG TAB PO SCH (08:24)
[2018-08-15] MEDS: HYDROcodone/Acetaminophen 5/325 mg Tablet PO PRN ×2 (08:26→13:45)
--- NOTE | 2018-08-15 09:16 | PDOC.PN ---
- Subjective Encounter Start Date: 08/15/18 Encounter Start Time: 07:40 Patient seen and examined. No new complaints. No overnight events - Objective Resuscitation Status - Order Detail: 08/13/18 13:45 Resuscitation Status Routine Resuscitation Status: FULL: Full Resuscitation MAR Reviewed: Yes Vital Signs & Weight: Vital Signs (12 hours) Temp Pulse Resp BP BP Pulse Ox 08/15/18 07:30 98.4 F 110 H 18 132/83 97 08/15/18 04:00 98.3 F 99 16 147/80 H 91 L 08/15/18 00:00 97.9 F 97 18 153/78 H 91 L Weight Admit Weight 252 lb Weight 252 lb I&O: 08/14/18 08/15/18 08/16/18 06:59 06:59 06:59 Intake Total 1390 3192 2015 Output Total 300 3800 2600 Balance 1090 -608 -584 Result Diagrams: 08/15/18 05:35 Phys Exam - Physical Examination Constitutional: NAD HEENT: PERRLA, moist MMs, sclera anicteric Neck: no JVD, supple Respiratory: no wheezing, no rales, no rhonchi Cardiovascular: RRR, no significant murmur, no rub Gastrointestinal: soft, non-tender, no distention, positive bowel sounds Musculoskeletal: no edema, pulses present Neurological: non-focal, normal sensation Psychiatric: normal affect, A&O x 3 Skin: no rash, normal turgor Dx/Plan (1) Status post total hip replacement, left Code(s): Z96.642 - PRESENCE OF LEFT ARTIFICIAL HIP JOINT Status: Acute (2) Dyslipidemia Code(s): E78.5 - HYPERLIPIDEMIA, UNSPECIFIED Status: Chronic (3) Hypertension Code(s): I10 - ESSENTIAL (PRIMARY) HYPERTENSION Status: Chronic (4) Lumbar canal stenosis Code(s): M48.061 - SPINAL STENOSIS, LUMBAR REGION WITHOUT NEUROGENIC SADE Status: Chronic (5) Morbid obesity with BMI of 40.0-44.9, adult Code(s): E66.01 - MORBID (SEVERE) OBESITY DUE TO EXCESS CALORIES; Z68.41 - BODY MASS INDEX (BMI) 40.0-44.9, ADULT Status: Chronic (6) Osteoarthritis Code(s): M19.90 - UNSPECIFIED OSTEOARTHRITIS, UNSPECIFIED SITE Status: Chronic (7) Anemia, normocytic normochromic Code(s): D64.9 - ANEMIA, UNSPECIFIED Status: Chronic - Plan cont current plan of care * medication reviewed as below * symptomatic treatment * see discharge summery * medically stable. Review of Systems - Review of Systems ENT: negative: Ear Pain, Ear Discharge, Nose Pain, Nose Discharge, Nose Congestion, Mouth Pain, Mouth Swelling, Throat Pain, Throat Swelling, Other Respiratory: negative: Cough, Dry, Shortness of Breath, Hemoptysis, SOB with Excertion, Pleuritic Pain, Sputum, Wheezing Cardiovascular: negative: chest pain, palpitations, orthopnea, paroxysmal nocturnal dyspnea, edema, light headedness, other Gastrointestinal: negative: Nausea, Vomiting, Abdominal Pain, Diarrhea, Constipation, Melena, Hematochezia, Other Genitourinary: negative: Dysuria, Frequency, Incontinence, Hematuria, Retention , Other Musculoskeletal: negative: Neck Pain, Shoulder Pain, Arm Pain, Back Pain, Hand Pain, Leg Pain, Foot Pain, Other - Medications/Allergies Allergies/Adverse Reactions: Allergies Allergy/AdvReac Type Severity Reaction Status Date / Time ofloxacin [From Floxin] Allergy hallucinati Verified 08/08/18 12:46 ons Medications: Current Medications Acetaminophen (Tylenol) 1,000 mg PO Q6H PRN PRN Reason: Fever/Mild Pain Hydrocodone Bitart/Acetaminophen ([place] 5/325) 1 tab PO Q4H PRN PRN Reason: Mild Pain 0-3 Hydrocodone Bitart/Acetaminophen ([place] 5/325) 2 tab PO Q4H PRN PRN Reason: For Moderate Pain 4-6 Last Admin: 08/14/18 09:58 Dose: 2 tab Aspirin (Ecotrin) 81 mg PO BID [facility] Last Admin: 08/15/18 08:21 Dose: 81 mg Diphenhydramine HCl (Benadryl) 25 mg IM Q3H PRN PRN Reason: Itching Diphenhydramine HCl (Benadryl) 25 mg IVP Q3H PRN PRN Reason: Itching Diphenhydramine HCl (Benadryl) 25 mg PO Q6H PRN PRN Reason: Itching Duloxetine HCl (Cymbalta) 30 mg PO BID [facility] Last Admin: 08/15/18 08:21 Dose: 30 mg Emollient Cream (Hydrocerin Cream) 0 gm TOP PRN PRN PRN Reason: Itching Famotidine (Pepcid) 20 mg PO BID [facility] Last Admin: 08/15/18 08:24 Dose: 20 mg Ferrous Gluconate (Fergon) 324 mg PO BID [facility] Last Admin: 08/15/18 08:23 Dose: 324 mg Gabapentin (Neurontin) 600 mg PO 0900,1500 [facility] Last Admin: 08/15/18 08:23 Dose: 600 mg Gabapentin (Neurontin) 1,200 mg PO HS [facility] Last Admin: 08/14/18 21:56 Dose: 1,200 mg Hydrochlorothiazide (Hydrochlorothiazide) 12.5 mg PO DAILY [facility] Last Admin: 08/15/18 08:22 Dose: 12.5 mg Fentanyl Citrate (Fentanyl/Bupivacaine) 100 mls @ 8 mls/hr EPIDURAL INF [facility] Last Admin: 08/15/18 05:43 Dose: 100 mls Sodium Chloride (Normal Saline 0.9%) 1,000 mls @ 100 mls/hr IV .Q10H [facility] Last Admin: 08/15/18 08:24 Dose: Not Given Iron/Minerals/Multivitamins (Theragran M) 1 tab PO DAILY [facility] Last Admin: 08/15/18 08:23 Dose: 1 tab Losartan Potassium (Cozaar) 50 mg PO HS [facility] Last Admin: 08/14/18 21:56 Dose: 50 mg Miscellaneous Information (Communication Order-Pharmacy) 1 each FS ASDIR [facility] Naloxone HCl (Narcan) 0.2 mg IV Q5MIN PRN PRN Reason: RR <=8 OR OBTUNDED/UNAROUSABLE Naloxone HCl (Narcan) 0.1 mg IVP Q15MIN PRN PRN Reason: URINARY RETENTION Ondansetron HCl (Zofran) 4 mg IVP Q6H PRN PRN Reason: Nausea/Vomiting Promethazine HCl (Phenergan Suppository) 25 mg [place] Q4H PRN PRN Reason: Nausea/Vomiting Promethazine HCl (Phenergan) 12.5 mg IM Q4H PRN PRN Reason: Nausea/Vomiting Senna/Docusate Sodium (Senokot S) 2 tab PO BID [facility] Last Admin: 08/15/18 08:23 Dose: 2 tab Sodium Chloride (Flush - Normal Saline) 10 ml IVF PRN PRN PRN Reason: Saline Flush Tizanidine HCl (Zanaflex) 4 mg PO Q8H PRN PRN Reason: MUS PAIN Tramadol HCl (Ultram) 50 mg PO Q6H PRN PRN Reason: Mild Pain 1-3 Tramadol HCl (Ultram) 100 mg PO Q6H PRN PRN Reason: Moderate Pain 4-6 Verapamil HCl (Calan Sr) 240 mg PO QAM [facility] Last Admin: 08/15/18 08:23 Dose: 240 mg Zolpidem Tartrate (Ambien) 5 mg PO HSPRN PRN PRN Reason: Insomnia
--- NOTE | 2018-08-15 10:28 | DIS ---
DATE OF ADMISSION: 08/13/2018 DATE OF DISCHARGE: 08/15/2018 PRIMARY CARE PHYSICIAN: Sven Parker MD DISCHARGE DISPOSITION: Home. PRIMARY DISCHARGE DIAGNOSIS: Status post left total hip replacement. SECONDARY DISCHARGE DIAGNOSES: 1. Osteoarthritis. 2. Morbid obesity with body mass index of 40. 3. Chronic lumbar canal stenosis. 4. Hypertension. 5. Dyslipidemia. 6. Normocytic normochromic anemia. PRIMARY PROCEDURE/OPERATION: Left hip replacement by Dr. Will. RADIOLOGICAL INVESTIGATION: Repeat x-ray. SIGNIFICANT LABS: Hemoglobin 11.6. DISCHARGE MEDICATION: 1. Henry 5 one tablet q.6 hourly p.r.n. 2. Tramadol 50 mg q.6 hourly p.r.n. 3. Zanaflex 4 mg q.8 hourly p.r.n. 4. Tylenol Arthritis 2 tablets p.o. t.i.d. p.r.n. 5. Calcium with vitamin D 1 tablet daily. 6. Cinnamon 1000 mg t.i.d. 7. Cymbalta 30 mg p.o. b.i.d. 8. Fiber capsules 2 capsules p.o. t.i.d. 9. Fish oil 1 capsule daily. 10. Gabapentin 600 mg as directed. 11. Hydrochlorothiazide 12.5 mg p.o. daily. 12. Losartan 50 mg p.o. daily. 13. Magnesium 400 mg p.o. daily. 14. Mobic 15 mg p.o. daily p.r.n. 15. Potassium 99 mg p.o. daily. 16. Verapamil SR 240 mg p.o. daily. 17. Ocuvite 1 tablet daily. 18. Zinc 50 mg b.i.d. 19. Aspirin 81 mg p.o. b.i.d. for DVT prophylaxis. CONTRAINDICATION: None. CODE STATUS: Full code. INPATIENT SURGERY MANAGER: Dr. Will was primary, Sound Team was consulted for medical management. ALLERGIES: OFLOXACIN. TEST RESULTS PENDING ON DISCHARGE: None. DISCHARGE PLAN: Posthospital, the patient will follow up with Dr. Arthur Will as instructed. HOSPITAL COURSE: A 68-year-old female, who was admitted by Dr. Will, electively for left hip replacement and after surgery Sound Team was consulted for medical management. While in hospital, the patient had epidural. Her pain was controlled with pain medication. The patient did very well with [facility] protocol treatment. The patient's home medication was continued while in the hospital as well as on discharge. She is given aspirin for DVT prophylaxis. The patient is seen and examined at bedside today. Please see my progress note from today for further details. Job ID: [id number]
[2018-08-15 11:50] VITALS: BP 110/65; TEMP 98.2
[2018-08-16] MEDS ORDERED: Fluticasone Propionate Nasal Spray 16 gm Bottle NASAL SCH (09:00)
== END 2018-08-15 16:18 | disposition home or self-care (01) | DRG 470 ==
LOC: SURG A 08-13 06:38 → SJJU 08-13 11:50
PROVIDERS: ADMIT Orthopaedic Surgery; ATTEND Orthopaedic Surgery
PROC: 0SRB04A Replacement of Left Hip Joint with Ceramic on Polyethylene Synthetic Substitute, Uncemented, Open Approach (ICD-10-PCS; principal; 2018-08-13)
DX: M16.12 Unilateral primary osteoarthritis, left hip (principal); Z68.41 Body mass index [BMI] 40.0-44.9, adult; E66.01 Morbid (severe) obesity due to excess calories; M48.061 Spinal stenosis, lumbar region without neurogenic claudication; I10 Essential (primary) hypertension; E78.5 Hyperlipidemia, unspecified; D64.9 Anemia, unspecified
CPT/HCPCS: 36415; 85027; G8978-GP-CM; G8979-GP-CJ; G8987-GO-CK; G8988-GO-CI; J0131; J1100; J1200; J2001; J2250; J2405; J2704; J3010; J3370; J7050

== ENCOUNTER 2020-06-20 22:03 | Emergency (ER) | payer MEDICARE, OTHER ==
[2020-06-20] MEDS ORDERED: Morphine 4 MG/ML VIAL ONE (22:49)
[2020-06-20] MEDS ORDERED: Acetaminophen 500 MG TAB ONE (22:49)
[2020-06-20] MEDS ORDERED: Ketorolac Tromethamine 30 MG/ML VIAL ONE (22:49)
[2020-06-20 22:52] LABS: #Basophils 0.1 thou/uL (0.0-0.2); #Eosinphils 0.1 thou/uL (0.0-0.7); #Lymphocytes 2.9 thou/uL (1.20-3.40); #Monocytes 0.9 thou/uL (0.11-0.59); #Neutrophils 9.5 thou/uL (1.40-6.50); %Basophils 0.6 % (0.0-1.0); %Eosinophils 1.1 % (0.0-10.0); %Lymphocytes 21.6 % (21.0-51.0); %Monocytes 6.4 % (0.0-10.0); %Neutrophils 70.3 % (42.0-75.0); Hemoglobin 14.6 g/dL (12.0-16.0); Mean Corpuscular HGB CONC 34.9 g/dL (32.0-36.0); Mean Corpuscular Hemoglobin 29.7 pg (27.0-31.0); Mean Corpuscular Volume 85.1 fL (78.0-98.0); Mean Platelet Volume 9.1 fL (7.4-10.4); Platelet Count 313 thou/uL (130-400); Red Blood Cell (RBC) Count 4.92 mill/uL (4.20-5.40); White Blood Cell (WBC) Count 13.5 thou/uL (4.8-10.8)
[2020-06-20 23:12] LABS: ALT (SGPT) 29 U/L (8-55); AST (SGOT) 22 U/L (5-34); Albumin 4.1 g/dL (3.4-4.8); Alkaline Phosphatase 81 U/L (40-110); Anion Gap 18 mmol/L (10-20); BUN (Urea Nitrogen) 31 mg/dL (9.8-20.1); Bilirubin, Total 0.3 mg/dL (0.2-1.2); Calc. Creatinine Clearance 0 mL/min (70-130); Carbon Dioxide 27 mmol/L (23-31); Chloride 96 mmol/L (98-107); Estimated GFR-MDRD 51; Globulin 3.3 g/dL (2.4-3.5); Glucose 326 mg/dL (80-115); Potassium 3.9 mmol/L (3.5-5.1); Protein, Total 7.4 g/dL (6.0-8.3); Sodium 137 mmol/L (136-145)
--- NOTE | 2020-06-20 23:29 | ULT ---
US Venous Doppler Rt Unilat History: Posterior leg pain Comparison: None. Findings: Real-time grayscale, color and spectral analysis of the right lower extremity venous system was performed. The common femoral, femoral, proximal portions greater saphenous and deep femoral veins as well as the popliteal and posterior tibial veins were interrogated. Normal flow, augmentation and compression. Impression: No deep venous thrombosis.
== END 2020-06-21 00:05 | disposition home or self-care (01) ==
LOC: ERS 22:03
DX: S39.012A Strain of muscle, fascia and tendon of lower back, initial encounter (principal); E11.9 Type 2 diabetes mellitus without complications; I10 Essential (primary) hypertension; F32.9 Major depressive disorder, single episode, unspecified; Z71.6 Tobacco abuse counseling; Z79.899 Other long term (current) drug therapy
CPT/HCPCS: 36415; 80053; 85025; 85379; 96374; 96375; 99406; J1885; J2270

== ENCOUNTER 2020-07-30 13:23 | Outpatient (CLI) | payer MEDICARE, OTHER ==
--- NOTE | 2020-07-30 14:57 | RAD ---
LUMBAR SPINE: 07/30/20 HISTORY: Back pain. COMPARISON: 01/09/18. Lumbar vertebrae maintain height. Degenerative disc changes at all levels with disc narrowing. Modera te degenerative osteophytes and facet hypertrophy. Slight posterolisthesis at L3-4 is stable from the prior exam. No significant change in alignment with flexion or extension. IMPRESSION: Degenerative changes lumbar spine appears stable from prior exam. POS: OFF
--- NOTE | 2020-07-30 16:10 | MRI ---
MR LUMBAR SPINE WITHOUT CONTRAST: 07/30/20 INDICATION: 70-year-old female with low back pain. COMPARISON: Prior MR of the lumbar spine dated 01/09/18. FINDINGS: There is grade I anterolisthesis of L4 on L5 which is stable. Conus is seen to terminate at approxima tely T12-L1. There has been interval postsurgical change of laminectomies at L4 and L5. The visualized aspects of the retroperitoneum and paravertebral soft tissues reveal no definite acute abnormality. No acute fracture is demonstrated. At L5-S1, there is a broad based disc bulge with a superimposed central protrusion. The protrusion in addition to facet hypertrophy induces moderate left recess narrowing without definite impingement of the traversing S1 nerve roots. This is relatively stable to the prior exam. The degree of central ca nal narrowing has improved since the laminectomy. No appreciable neural foraminal narrowing is eviden t. At L4-5, there is a broad based bulge with facet hypertrophy and loss of disc space height. There is mild narrowing of the neural foramina, right greater than left that is stable to the prior exam. Cent ral canal narrowing has improved from the prior study. At L3-4, there is an asymmetric to the left broad based disc osteophyte complex and facet hypertrophy inducing mild to moderate left neural foraminal narrowing which is stable. At L2-3, there is a broad based bulge with facet hypertrophy inducing some mild effacement of the sub arachnoid space without nerve root compression. No appreciable neural foraminal narrowing is evident. At L1-L2, there is a broad based bulge that is stable in size from the prior exam. No appreciable meghan tral canal or neural foraminal narrowing is evident. T1-L1, there is a minimal broad based bulge but no appreciable central canal or neural foraminal narr owing. IMPRESSION: Improved central canal narrowing at L4-5 and L5-S1 due to interval laminectomies. There is persistent central protrusion at L5-S1 in addition to facet hypertrophy inducing moderate lateral recess narrow ing without definite impingement of the traversing S1 nerve roots. There is a persistent neural jose alberto inal narrowing from L3-4 through L5-S1. POS: TONIA
== END 2020-07-30 13:24 | disposition home or self-care (01) ==
LOC: TBSIIMAG 13:23
PROVIDERS: ATTEND Surgery
DX: M54.5 Low back pain (principal); M79.606 Pain in leg, unspecified; M48.061 Spinal stenosis, lumbar region without neurogenic claudication; M48.07 Spinal stenosis, lumbosacral region; M51.27 Other intervertebral disc displacement, lumbosacral region; M47.816 Spondylosis without myelopathy or radiculopathy, lumbar region; Z98.890 Other specified postprocedural states
CPT/HCPCS: 72110; 72148

== ENCOUNTER 2021-03-17 17:47 | Inpatient (IN) | payer MEDICARE, OTHER ==
[2021-03-18 02:43] VITALS: BMI 39.3
[2021-03-22 15:31] VITALS: BP 117/50; TEMP 97.6
== END 2021-03-22 16:08 | disposition home or self-care (01) | DRG 175 ==
LOC: ERS 17:47 → ERHOLD 21:18 → 2NO 03-18 16:41
PROVIDERS: ADMIT Student in an Organized Health Care Education/Training Program; ATTEND Internal Medicine
DX: I26.99 Other pulmonary embolism without acute cor pulmonale (principal); I21.A1 Myocardial infarction type 2; E87.2 Acidosis; I82.432 Acute embolism and thrombosis of left popliteal vein; I10 Essential (primary) hypertension; F32.9 Major depressive disorder, single episode, unspecified; E66.01 Morbid (severe) obesity due to excess calories; R91.1 Solitary pulmonary nodule; K76.0 Fatty (change of) liver, not elsewhere classified; E27.8 Other specified disorders of adrenal gland; E11.9 Type 2 diabetes mellitus without complications; F41.9 Anxiety disorder, unspecified; Z90.49 Acquired absence of other specified parts of digestive tract; Z88.8 Allergy status to other drugs, medicaments and biological substances; Z79.82 Long term (current) use of aspirin; Z79.899 Other long term (current) drug therapy; Z68.39 Body mass index [BMI] 39.0-39.9, adult
CPT/HCPCS: 36415; 36416; 71045; 71275; 74170; 80048; 80053; 82010; 82553; 83036; 83605; 83880; 84484; 85025; 93005; 93306; 93970; 94760; 96372; J1650; J1815; Q0162; Q9967

== ENCOUNTER 2021-11-08 16:44 | Emergency (ER) | payer MEDICARE, OTHER ==
[2021-11-08] MEDS ORDERED: Ketorolac Tromethamine 30 MG/ML VIAL ONE (17:39)
[2021-11-08] MEDS ORDERED: Morphine 4 MG/ML VIAL ONE (18:18)
[2021-11-08] MEDS ORDERED: Ondansetron ODT 4 MG TAB ONE (19:49)
[2021-11-08] MEDS ORDERED: Cyclobenzaprine 10 MG TAB ONE (19:49)
== END 2021-11-08 21:12 | disposition home or self-care (01) ==
LOC: ERS 16:44
DX: M54.31 Sciatica, right side (principal); I10 Essential (primary) hypertension; E11.9 Type 2 diabetes mellitus without complications; Z86.711 Personal history of pulmonary embolism; Z79.01 Long term (current) use of anticoagulants; Z79.84 Long term (current) use of oral hypoglycemic drugs; Z79.899 Other long term (current) drug therapy
CPT/HCPCS: 36416; 96372; J1885; J2270; Q0162

== ENCOUNTER 2023-06-18 12:43 | Outpatient (CLI) | payer MEDICARE, OTHER | END 2023-06-18 12:44 | disposition home or self-care (01) | LOC: BICCT 12:43 | PROVIDERS: ATTEND Internal Medicine Critical Care Medicine | DX: R91.8 Other nonspecific abnormal finding of lung field (principal) | CPT/HCPCS: 71250 ==

== ENCOUNTER 2023-07-12 10:59 | Outpatient (CLI) | payer MEDICARE, OTHER | END 2023-07-12 11:00 | disposition home or self-care (01) | LOC: MRI 10:59 | PROVIDERS: ATTEND Psychiatry & Neurology Neurology | DX: M48.061 Spinal stenosis, lumbar region without neurogenic claudication (principal); M47.816 Spondylosis without myelopathy or radiculopathy, lumbar region; M48.07 Spinal stenosis, lumbosacral region | CPT/HCPCS: 72148 ==

== ENCOUNTER 2023-10-04 08:35 | Outpatient (CLI) | payer MEDICARE, OTHER | END 2023-10-04 08:36 | disposition home or self-care (01) | LOC: BICMAMMO 08:35 | PROVIDERS: ATTEND Internal Medicine | DX: Z12.31 Encounter for screening mammogram for malignant neoplasm of breast (principal); N64.89 Other specified disorders of breast | CPT/HCPCS: 77063; 77067 ==

== ENCOUNTER 2023-10-10 09:00 | Outpatient (CLI) | payer MEDICARE, OTHER | END 2023-10-10 09:01 | disposition home or self-care (01) | LOC: BICMAMMO 09:00 | PROVIDERS: ATTEND Internal Medicine | DX: N63.24 Unspecified lump in the left breast, lower inner quadrant (principal); N60.02 Solitary cyst of left breast | CPT/HCPCS: 76642; 77065; G0279 ==

== ENCOUNTER 2024-03-20 12:32 | Outpatient (CLI) | payer MEDICARE, OTHER ==
[2024-03-20 14:19] LABS: Hematocrit 41.4 % (34.9-44.5); Hemoglobin 13.9 g/dL (12.0-15.5); Mean Corpuscular HGB CONC 33.6 g/dL (32.0-36.0); Mean Corpuscular Hemoglobin 28.7 pg (27.0-33.0); Mean Corpuscular Volume 85.4 fL (81.6-98.3); Mean Platelet Volume 11.2 fL (7.4-10.4); Platelet Count 301 10x3/uL (150-450); RBC Distribution Width 14.4 % (11.5-14.5); Red Blood Cell (RBC) Count 4.85 10x6/uL (3.90-5.03)
[2024-03-20 14:33] LABS: Anion Gap 12 mmol/L (10-20); BUN (Urea Nitrogen) 13 mg/dL (9.8-20.1); Calc. Creatinine Clearance 0 mL/min (70-130); Calcium 9.7 mg/dL (7.8-10.44); Carbon Dioxide 29 mmol/L (23-31); Chloride 106 mmol/L (98-107); Estimated GFR 88; Glucose 96 mg/dL (83-110); Potassium 3.7 mmol/L (3.5-5.1); Sodium 143 mmol/L (136-145)
== END 2024-03-20 12:33 | disposition home or self-care (01) ==
LOC: LABBT 12:32
PROVIDERS: ATTEND Neurological Surgery
DX: Z01.818 Encounter for other preprocedural examination (principal); M48.062 Spinal stenosis, lumbar region with neurogenic claudication
CPT/HCPCS: 80048; 85027; 93005; 93010

== ENCOUNTER 2025-08-11 09:48 | Outpatient (CLI) | payer MEDICARE, OTHER | END 2025-08-11 09:49 | disposition home or self-care (01) | LOC: BICCT 09:48 | PROVIDERS: ATTEND Internal Medicine Critical Care Medicine | DX: R91.8 Other nonspecific abnormal finding of lung field (principal) | CPT/HCPCS: 71250 ==